=== PATIENT | male | born 1980 | race Caucasian/White ===

== ENCOUNTER 2019-02-18 21:59 | Emergency (ER) | payer MEDICAID ==
[~2019-02-18] VITALS: Ht 167.6 cm; Wt 54.5 kg
[~2019-02-18 21:59] MED LIST: DULO-31 PO; FLUO10CA28 PO; FLUT16SP2 BOTHNARES; LIDOCAINE TOPICAL TOP; TIOT18CA3 INH; TRAZ-251 PO
[2019-02-18] MEDS ORDERED: ondansetron 4mg rapidly disintigrating tab PO ONE (22:20)
[2019-02-18 23:04] VITALS: BP 125/70
--- NOTE | 2019-02-18 23:05 | NUR ---
surgicell applied to affected finger,blding under control.hemostat absorbant guage on.
[2019-02-18] MEDS ORDERED: CEPH250T PO (23:18)
== END 2019-02-18 23:25 | disposition home or self-care (01) ==
LOC: ER 22:00
DX: S61.301A Unspecified open wound of left index finger with damage to nail, initial encounter (principal); Z91.012 Allergy to eggs; Z91.011 Allergy to milk products; Z91.018 Allergy to other foods; Z79.899 Other long term (current) drug therapy; W26.0XXA Contact with knife, initial encounter; Y93.89 Activity, other specified; Y92.89 Other specified places as the place of occurrence of the external cause; Y99.8 Other external cause status
CPT/HCPCS: 64450; 99284

== ENCOUNTER 2020-04-15 00:58 | Emergency (ER) | payer MEDICAID ==
[~2020-04-15] VITALS: Ht 167.6 cm; Wt 74.0 kg
--- NOTE | 2020-04-15 01:11 | NUR ---
Nuzhat (girlfriend) called [phone]
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
--- NOTE | 2020-04-15 01:29 | NUR ---
to CT scan
--- NOTE | 2020-04-15 01:32 | NUR ---
patient reports not taking his suboxone since last Raudel
[2020-04-15 01:50] LABS: BASOPHILS % (AUTO) 0.5 % (0-1); EOSINOPHILS # (AUTO) 0.1 X10'3 (0-0.9); EOSINOPHILS % (AUTO) 0.9 % (0-6); HEMATOCRIT 40.2 % (42.0-52.0); HEMOGLOBIN 13.7 g/dl (14.0-17.9); LYMPHOCYTES # (AUTO) 1.9 X10'3 (1.1-4.8); MEAN CORPUSCULAR HEMOGLOBIN 30.1 PG (27.0-31.0); MEAN CORPUSCULAR HGB CONC 34.1 g/dL (33.0-36.5); MEAN CORPUSCULAR VOLUME 88.3 FL (78-98); MEAN PLATELET VOLUME 7.9 FL (7.4-10.4); MONOCYTES # (AUTO) 0.5 X10'3 (0-0.9); MONOCYTES % (AUTO) 7.5 % (2-12); NEUTROPHILS # (AUTO) 4.3 X10'3 (1.8-7.7); NEUTROPHILS % (AUTO) 63.1 % (42-75); PLATELET COUNT 212 X10'3 (140-440); RED BLOOD COUNT 4.55 X10'6 (4.70-6.10); RED CELL DISTRIBUTION WIDTH 12.4 % (11.5-14.5); WHITE BLOOD COUNT 6.8 X10'3 (4.5-11.0)
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
[2020-04-15 02:00] LABS: ALANINE AMINOTRANSFERASE 23 U/L (12-78); ALBUMIN 4.5 G/DL (3.4-5.0); ALBUMIN/GLOBULIN RATIO 1.5 (1.1-1.5); ALKALINE PHOSPHATASE 51 IU/L (46-116); ANION GAP 10 (8-16); ASPARTATE AMINO TRANSFERASE 33 U/L (10-37); BILIRUBIN,TOTAL 0.4 MG/DL (0.1-1.0); BLOOD UREA NITROGEN 7 MG/DL (7-18); BUN/CREATININE RATIO 7.8 (5.4-32.0); CALCIUM 9.2 MG/DL (8.5-10.1); CHLORIDE 103 MMOL/L (99-107); GLUCOSE 114 MG/DL (70-104); POTASSIUM 3.3 MMOL/L (3.5-5.1); SODIUM 140 MMOL/L (135-145); TOTAL CARBON DIOXIDE 26.8 MMOL/L (24-32); TOTAL PROTEIN 7.6 G/DL (6.4-8.2); eGFR > 90 ML/MIN
[2020-04-15 02:04] LABS: ETHANOL < 0.010 GM/DL (0.0-0.010)
[2020-04-15] MEDS ORDERED: LORazepam 1 MG tablet PO ONE ×2 (03:00→05:10)
--- NOTE | 2020-04-15 03:08 | NUR ---
patient needs coaching and reminding that he is a patient and the noises he hears are of other patients in other rooms. Patient attempted to walk out of room and required hands open palms facing patietn to guide him back to his room. ER MD aware of patient anxiety. Ativan order received patient swallowed po. unable to urinate drank 12 oz of water
--- NOTE | 2020-04-15 03:42 | NUR ---
up to bathroom with security in attendance patient to restroom soft brown stool. urinal bottle with clear fluid and soap from dispenser. Patient unable to urinate reports he does not want to give a tox screen. documentation billing clerk aware of situation
--- NOTE | 2020-04-15 05:25 | NUR ---
patient handed me the specimen cup said he did it and white liquid in the cup he handed thean said he was sorry that he did that to me. Dr Rahman notified patient specimen.
[2020-04-15] MEDS ORDERED: diphenhydrAMINE 25mg capsule PO ONE (05:30)
--- NOTE | 2020-04-15 06:01 | NUR ---
SECURITY CALLED TO BEDSIDE PATIENT REFUSED TO STAY IN ROOM. NO NEW ORDERS FORM DR GALLEGO
[2020-04-15] MEDS ORDERED: FLUOXETINE HCL PO PRN (06:30)
--- NOTE | 2020-04-15 06:58 | NUR ---
PT SITTING IN BED ,NO DISTRESS NOTED ,SECURITY AT BEDSIDE WITH ONE TO ONE FUR SCRAPER FOR PT OBSERVATION STATUS.
[2020-04-15] MEDS ORDERED: fluticasone nasal spray 16GM bottle NS SCH (08:00)
[2020-04-15] MEDS: duloxetine 30mg CAPSULE.DR PO SCH ×2 (08:00→20:10)
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
--- NOTE | 2020-04-15 08:21 | NUR ---
PT LASIX ORDER CLARIFIED WITH DR LOPEZ PER WE NEED URINE SPECIMEN THATS WHY WE ARE ADMINISTERING LASIX.
[2020-04-15] MEDS ORDERED: OLANZapine **IM** 10 mg inj. IM ONE (08:40)
[2020-04-15] MEDS ORDERED: furosemide 10 MG/1 ML 10ml inj IM ONE (08:40)
[2020-04-15] MEDS ORDERED: LORazepam 2 mg/ml vial IM ONE (08:40)
--- NOTE | 2020-04-15 08:40 | NUR ---
PT MEDICATED WITH ZYPREXA ,ATIVIAN AND LASIX IM INJ PER MD ORDERS WITH HELP OF SOLID WASTE MANAGERCATHY GÓMEZ .NO DISTRESS NOTED PT EXLAINED THE ACTION DOSE AND ROUTE TO THE PT .
[2020-04-15] MEDS: ipratropium 0.5 MG/2.5ML nebule NEB SCH ×3 (09:00→21:00)
[2020-04-15 09:52] LABS: CLARITY,URINE CLEAR (Clear); COLOR,URINE YELLOW (Yellow); GLUCOSE, URINE NEGATIVE (Neg); KETONES,URINE 40 mg/dl (Neg); LEUKOCYTE ESTERASE ,URINE NEGATIVE (Neg); NITRITES, URINE NEGATIVE (Neg); OCCULT BLOOD,URINE NEGATIVE (Neg); PH,URINE 6.5 (4.8-8.0); PROTEIN,URINE NEGATIVE (Neg); UROBILINOGEN,URINE 0.2 E.U/dL (0.2-1.0)
[2020-04-15 09:56] LABS: UA COLLECTION TYPE VOIDED
--- NOTE | 2020-04-15 10:00 | NUR ---
PT URINATED AGAIN APPR 900 ML .
[2020-04-15 10:08] LABS: URINE AMPHETAMINE SCREEN NEGATIVE (Neg); URINE BARBITUATE SCREEN NEGATIVE (Neg); URINE BENZODIAZEPINES SCREEN NEGATIVE (Neg); URINE CANNABINOID SCREEN POSITIVE (Neg); URINE COCAINE SCREEN NEGATIVE (Neg); URINE METHADONE SCREEN NEGATIVE (Neg); URINE OPIATE SCREEN NEGATIVE (Neg); URINE PHENCYCLIDINE SCREEN NEGATIVE (Neg)
--- NOTE | 2020-04-15 10:34 | NUR ---
RECEVIED CALL FROM [facility] FOR PT TOX SCREEN RESULTS TO BE FAXED OUT TO THEM ,NOTIFIED GIO RENEE TO SEND THE REPORT ,REPORT SENT TO THE [facility].
--- NOTE | 2020-04-15 10:56 | NUR ---
PT SLEEPING IN SUPINE POSITION AT THIS TIME ,WILL CONT TO MONITOR,RR WNL.
--- NOTE | 2020-04-15 12:45 | NUR ---
PT SLEEPING IN SUPINE POSITION ,RR WNL ,WILL CONT TO MONITOR.
--- NOTE | 2020-04-15 13:30 | NUR ---
pt eating his lunch at this time ,will cont to monitor ,sitter on one to one observation.
--- NOTE | 2020-04-15 14:47 | NUR ---
called [facility] AT [phone] to notified that pt is waiting for evaluation as per them they are going to send [facility] eval to evaluate the pt.
--- NOTE | 2020-04-15 16:46 | NUR ---
explain the poc to the pt instructed that we have called [facility] to evaluate the pt but no one is here yet.
[2020-04-15 18:11] VITALS: BP 139/93
--- NOTE | 2020-04-15 18:31 | NUR ---
pt up in bed, eating dinner on phone. in no aparent distress
--- NOTE | 2020-04-15 18:46 | NUR ---
scmh at bedside
[2020-04-15] MEDS ORDERED: NORT25CA PO (20:21)
[2020-04-15] MEDS ORDERED: PROM25TA14 PO (20:21)
[2020-04-15] MEDS ORDERED: SENN-283 PO (20:21)
[2020-04-15] MEDS ORDERED: CLON-473 PO (20:21)
[2020-04-15] MEDS ORDERED: TRAZ-256 PO (20:21)
[2020-04-15] MEDS ORDERED: BACL20TA7 PO (20:21)
[2020-04-15] MEDS ORDERED: ATEN25TA2 PO (20:21)
[2020-04-15] MEDS ORDERED: proMETHazine 25mg tablet PO PRN (20:50)
[2020-04-15] MEDS ORDERED: traZODone 50mg tablet PO PRN (20:50)
[2020-04-15] MEDS ORDERED: baclofen 10mg tablet PO SCH (21:00)
[2020-04-15] MEDS ORDERED: proMETHazine 25mg tablet PO SCH (21:00)
[2020-04-15] MEDS ORDERED: traZODone 50mg tablet PO SCH ×2 (21:00)
--- NOTE | 2020-04-15 21:19 | NUR ---
pt adamant that he is going to go into withdrawl if he doesn't get his suboxone. ADvised pt that his external med rec doesn't show a current rx or fill for suboxone and that the last fill date was back in October. Pharmacy was contacted and they ran a CURES report which showed the same. pt states this is not correct and that he gets a 2 month supply each time he sees his PMD at [facility] - advised pt that we would monitor him for withdrawl but at this time there isn't anyone available to contact at [facility] to confirm or deny this.
[2020-04-16] MEDS ORDERED: sennosides/docusate sodium tablet PO SCH (08:00)
[2020-04-16] MEDS ORDERED: cloNIDine 0.1 mg tablet PO SCH (08:00)
[2020-04-16] MEDS ORDERED: atenolol 25mg tablet PO SCH (08:00)
[2020-04-16] MEDS ORDERED: nortriptyline 25mg capsule PO SCH (08:00)
== END 2020-04-15 22:43 | disposition home or self-care (01) ==
LOC: ER 00:59
DX: F29 Unspecified psychosis not due to a substance or known physiological condition (principal); R45.851 Suicidal ideations; F22 Delusional disorders; I10 Essential (primary) hypertension; F17.200 Nicotine dependence, unspecified, uncomplicated; F12.10 Cannabis abuse, uncomplicated; Z91.012 Allergy to eggs; Z91.011 Allergy to milk products; Z91.018 Allergy to other foods; Z79.899 Other long term (current) drug therapy
CPT/HCPCS: 36415; 70450; 71045; 80053; 80305; 80320; 81003; 85025; 93005; 94640; 96372; 99285; J1940; J2060; J3490; Q0163; 94760; 99284